=== PATIENT | female | born 1960 | race Caucasian/White ===

== ENCOUNTER → 2016-10-12 | Outpatient (REF) | payer MEDICARE, OTHER, MEDICAID ==
[~2016-10-12] MED LIST: BISO5TAB5 PO; GLYB5TAB5 PO; OMEP40CA2 PO; SETRALINE PO; [UNRECOGNIZED DRUG - OTHER] PO
[2016-10-12 13:51] LABS: PERCENT SATURATION 30.3 % (13.2-37.4)
== END ==
LOC: M LAB REF 12:53
PROVIDERS: ATTEND Internal Medicine Medical Oncology
DX: D50.9 Iron deficiency anemia, unspecified (principal)

== ENCOUNTER → 2016-10-30 | Outpatient (CLI) | payer OTHER, MEDICAID ==
[2016-10-30 15:17] LABS: INR 0.96
== END ==
LOC: M LAB 13:47
PROVIDERS: ATTEND Physical Medicine & Rehabilitation
DX: Z01.818 Encounter for other preprocedural examination (principal); M43.16 Spondylolisthesis, lumbar region

== ENCOUNTER → 2017-07-31 | Outpatient (REF) | payer OTHER, MEDICAID ==
[2017-07-31 19:41] LABS: PERCENT SATURATION 24.5 % (13.2-45.0)
== END ==
LOC: M LAB REF 17:48
PROVIDERS: ATTEND Internal Medicine Medical Oncology
DX: D50.9 Iron deficiency anemia, unspecified (principal)

== ENCOUNTER → 2017-07-31 | Outpatient (REF) | payer MEDICARE, OTHER, MEDICAID | LOC: M LABDRAW1 15:25 | PROVIDERS: ATTEND Physical Medicine & Rehabilitation | DX: M51.26 Other intervertebral disc displacement, lumbar region (principal) ==

== ENCOUNTER → 2018-02-19 | Outpatient (REF) | payer MEDICARE, OTHER, MEDICAID ==
[2018-02-19 12:44] LABS: PLATELET COUNT, AUTOMATED 256 10^3/uL (150-450)
[2018-02-19 12:56] LABS: INR 0.91; PROTHROMBIN TIME 12.3 SECONDS (12.4-14.5)
[2018-02-19 12:57] LABS: PARTIAL THROMBOPLASTIN TIME 30.2 SECONDS (26.8-37.9)
[2018-02-19 13:03] LABS: COLLAGEN EPINEPHRINE 191 SECONDS (74-162)
[2018-02-19 13:14] LABS: COLLAGEN ADP 101 SECONDS (56-103)
== END ==
LOC: M LAB REF 12:21
DX: M43.16 Spondylolisthesis, lumbar region (principal); Z79.01 Long term (current) use of anticoagulants
CPT/HCPCS: 85049

== ENCOUNTER → 2018-02-22 | Outpatient (CLI) | payer MEDICARE, OTHER, MEDICAID ==
[2018-02-22 09:42] LABS: COLLAGEN EPINEPHRINE 151 SECONDS (74-162)
== END ==
LOC: M LAB 08:47
DX: M43.16 Spondylolisthesis, lumbar region (principal)
CPT/HCPCS: 36415

== ENCOUNTER → 2018-10-09 | Outpatient (REF) | payer MEDICARE, OTHER, MEDICAID ==
[2018-10-09 12:08] LABS: COLLAGEN EPINEPHRINE 110 SECONDS (74-162)
[2018-10-09 12:39] LABS: INR 0.95; PARTIAL THROMBOPLASTIN TIME 26.1 SECONDS (25.4-37.6); PROTHROMBIN TIME 12.8 SECONDS (12.1-14.4)
== END ==
LOC: M LABDRAW1 10:53
PROVIDERS: ATTEND Physical Medicine & Rehabilitation
DX: Z01.812 Encounter for preprocedural laboratory examination (principal)

== ENCOUNTER → 2019-06-24 | Outpatient (REF) | payer MEDICARE, OTHER, MEDICAID ==
[2019-06-24 12:53] LABS: PLATELET COUNT, AUTOMATED 239 10^3/uL (150-450)
[2019-06-24 13:18] LABS: PROTHROMBIN TIME 12.9 SECONDS (11.8-14.0)
[2019-06-24 13:19] LABS: PARTIAL THROMBOPLASTIN TIME 28.3 SECONDS (25.0-38.4)
[2019-06-24 13:33] LABS: COLLAGEN EPINEPHRINE 114 SECONDS (74-162)
== END ==
LOC: M LABDRAW1 11:49
PROVIDERS: ATTEND Physical Medicine & Rehabilitation
DX: Z79.01 Long term (current) use of anticoagulants (principal); M47.817 Spondylosis without myelopathy or radiculopathy, lumbosacral region

== ENCOUNTER → 2020-04-21 | Outpatient (REF) | payer MEDICARE, OTHER, MEDICAID ==
[2020-04-21 12:30] LABS: INR 0.93; PROTHROMBIN TIME 12.7 SECONDS (11.8-14.0)
[2020-04-21 12:31] LABS: PARTIAL THROMBOPLASTIN TIME 31.5 SECONDS (25.0-38.4)
[2020-04-21 12:39] LABS: PLATELET COUNT, AUTOMATED 220 10^3/uL (150-450)
== END ==
LOC: M LABSMT 11:03
PROVIDERS: ATTEND Physical Medicine & Rehabilitation
DX: M48.061 Spinal stenosis, lumbar region without neurogenic claudication (principal)

== ENCOUNTER → 2020-11-03 | Outpatient (CLI) | payer MEDICARE, OTHER, MEDICAID ==
[2020-11-03 13:42] LABS: PLATELET COUNT, AUTOMATED 241 10^3/uL (150-450)
[2020-11-03 13:51] LABS: PROTHROMBIN TIME 13.4 SECONDS (12.5-14.3)
[2020-11-03 13:52] LABS: PARTIAL THROMBOPLASTIN TIME 28.8 SECONDS (24.2-38.5)
[2020-11-03 14:15] LABS: ERYTHROCYTE SEDIMENTATION RATE 31 mm/hr (0-30)
== END ==
LOC: M PLALAB 10:55
PROVIDERS: ATTEND Physical Medicine & Rehabilitation
DX: Z01.812 Encounter for preprocedural laboratory examination (principal); M48.061 Spinal stenosis, lumbar region without neurogenic claudication; Z79.899 Other long term (current) drug therapy

== ENCOUNTER → 2020-11-11 | Outpatient (CLI) | payer MEDICARE, OTHER, MEDICAID | LOC: M PLALAB 13:22 | PROVIDERS: ATTEND Physical Medicine & Rehabilitation | DX: M48.061 Spinal stenosis, lumbar region without neurogenic claudication (principal) ==

== ENCOUNTER → 2021-11-15 | Outpatient (CLI) | payer MEDICARE, OTHER, MEDICAID ==
[2021-11-15 13:06] LABS: PLATELET COUNT, AUTOMATED 232 10^3/uL (150-450)
[2021-11-15 13:23] LABS: INR 1.03; PROTHROMBIN TIME 13.9 SECONDS (12.7-14.5)
[2021-11-15 13:24] LABS: PARTIAL THROMBOPLASTIN TIME 28.3 SECONDS (25.9-37.0)
[2021-11-15 13:27] LABS: COLLAGEN EPINEPHRINE 141 SECONDS (74-162)
== END ==
LOC: M PLALAB 11:56
PROVIDERS: ATTEND Physician Assistant
DX: Z01.812 Encounter for preprocedural laboratory examination (principal); M48.061 Spinal stenosis, lumbar region without neurogenic claudication; Z79.899 Other long term (current) drug therapy; Z79.01 Long term (current) use of anticoagulants

== ENCOUNTER → 2022-10-24 | Outpatient (CLI) | payer MEDICARE, MEDICAID ==
[~2022-10-24] MED LIST changes: +ATOR40TA75 PO; +CYCL-707 PO; +GABA-282 PO; +HYDR50TAB PO; +JANU100T PO; +LIDO1PAD TOP; +METF500T13 PO; +OMEP-173 PO; +VITA100093 PO; +ZOLO100T PO
[2022-10-24 13:03] LABS: PLATELET COUNT, AUTOMATED 246 10^3/uL (150-450)
[2022-10-24 13:14] LABS: INR 0.92; PROTHROMBIN TIME 12.6 SECONDS (12.5-14.5)
[2022-10-24 13:15] LABS: PARTIAL THROMBOPLASTIN TIME 28.8 SECONDS (24.8-34.2)
[2022-10-24 13:49] LABS: COLLAGEN EPINEPHRINE 121 SECONDS (74-162)
== END ==
LOC: M PLALAB 10:05
PROVIDERS: ATTEND Physical Medicine & Rehabilitation
DX: Z01.812 Encounter for preprocedural laboratory examination (principal); Z79.899 Other long term (current) drug therapy

== ENCOUNTER → 2023-11-09 | Outpatient (CLI) | payer MEDICARE, MEDICAID ==
[2023-11-09 13:03] LABS: BASO % 0.6 % (0.0-1.0); EOS # 0.1 10^3/uL (0.0-0.5); EOS % 1.4 % (0.0-3.0); HEMOGLOBIN 14.4 g/dl (12.0-15.5); LYMPH # 1.6 10^3/uL (1.5-5.0); LYMPH % 24.9 % (24.0-44.0); MEAN CORPUSCULAR HEMOGLOBIN 31.6 pg (27.0-33.0); MEAN CORPUSCULAR HGB CONC 33.5 g/dl (32.0-36.5); MEAN CORPUSCULAR VOLUME 94.5 fl (80.0-96.0); MONO # 0.5 10^3/uL (0.0-0.8); MONO % 7.7 % (2.0-8.0); NEUTROPHILS # 4.1 10^3/uL (1.5-8.5); NEUTROPHILS % 65.2 % (36.0-66.0); PLATELET COUNT, AUTOMATED 260 10^3/uL (150-450); RED BLOOD COUNT 4.55 10^6/uL (4.00-5.40); WHITE BLOOD COUNT 6.3 10^3/uL (4.0-10.0)
[2023-11-09 13:11] LABS: ERYTHROCYTE SEDIMENTATION RATE 13 mm/hr (0-30)
[2023-11-09 13:16] LABS: INR 1.05; PARTIAL THROMBOPLASTIN TIME 27.5 SECONDS (24.8-34.2); PROTHROMBIN TIME 13.4 SECONDS (12.5-14.5)
[2023-11-09 13:31] LABS: COLLAGEN EPINEPHRINE 127 SECONDS (74-162)
[2023-11-09 13:40] LABS: ALBUMIN 4.1 G/DL (3.2-5.2); ALKALINE PHOSPHATASE 91 U/L (46-116); ALT/SGPT 19 U/L (7.0-40); AST/SGOT 15 U/L (<34); BILIRUBIN,TOTAL 1.1 MG/DL (0.3-1.2); BLOOD UREA NITROGEN 16 MG/DL (9-23); CALCIUM LEVEL 9.1 MG/DL (8.3-10.6); CARBON DIOXIDE LEVEL 29 MMOL/L (20-31); CHLORIDE LEVEL 103 MMOL/L (98-107); CREATININE FOR GFR 0.63 MG/DL (0.55-1.30); GLOMERULAR FILTRATION RATE > 60.0 (>45); GLUCOSE, FASTING 120 MG/DL (74-106); POTASSIUM SERUM 4.3 MMOL/L (3.5-5.1); SODIUM LEVEL 135 MMOL/L (136-145)
== END ==
LOC: M PLALAB 11:16
PROVIDERS: ATTEND Physician Assistant
DX: Z01.818 Encounter for other preprocedural examination (principal)

== ENCOUNTER → 2025-01-21 | Outpatient (CLI) | payer MEDICARE, MEDICAID ==
[~2025-01-21] MED LIST changes: +GABA-1172 PO; -GABA-282 PO
[2025-01-21 09:50] LABS: PLATELET COUNT, AUTOMATED 237 10^3/uL (150-450)
[2025-01-21 10:08] LABS: INR 0.93; PARTIAL THROMBOPLASTIN TIME 28.7 SECONDS (24.8-34.2); PROTHROMBIN TIME 12.8 SECONDS (12.5-14.5)
== END ==
LOC: M PLALAB 08:42
PROVIDERS: ATTEND Orthopaedic Surgery
DX: Z01.818 Encounter for other preprocedural examination (principal)